=== PATIENT | male | born 1985 | race African-American/Black ===

== ENCOUNTER 2023-10-17 01:42 | Emergency (ER) | payer SELFPAY ==
[~2023-10-17] VITALS: Ht 172.7 cm; Wt 87.5 kg
[2023-10-17 01:55] VITALS: BP 116/75; RESP 16; TEMP 98.4; O2SAT 99
[2023-10-17 01:58] VITALS: PULSE 93
[2023-10-17] MEDS ORDERED: IBUPROFEN 800MG TABLET PO ONE (03:45)
[2023-10-17] MEDS ORDERED: IBUPROFEN 800MG TABLET PO NR (04:30)
[2023-10-17] MEDS ORDERED: IBUP-2030 MT (05:30)
[2023-10-17] MEDS ORDERED: CYCL10TA21 MT (05:30)
== END 2023-10-17 07:08 | disposition home or self-care (01) ==
LOC: ER 01:42
DX: M54.2 Cervicalgia (principal); M54.9 Dorsalgia, unspecified; Z98.890 Other specified postprocedural states; V98.8XXA Other specified transport accidents, initial encounter; Y93.89 Activity, other specified; Y92.89 Other specified places as the place of occurrence of the external cause; Y99.8 Other external cause status
CPT/HCPCS: 99283